=== PATIENT | male | born 1955 | race Caucasian/White ===

== ENCOUNTER 2016-11-15 10:26 | Emergency (ER) | payer OTHER ==
[2016-11-15 10:51] VITALS: BP 127/75
--- NOTE | 2016-11-15 11:22 | UC ---
UC General HPI - HPI Summary HPI Summary: cough ,fever, chest congestion, laryngitis for the past three days. - History of Current Complaint Chief Complaint: UCRespiratory Stated Complaint: HEADACHE,COUGH,CHEST CONGESTION Time Seen by Provider: 11/15/16 10:55 Hx Obtained From: Patient Onset/Duration: Sudden Onset, Lasting Days Timing: Constant Onset Severity: Moderate Current Severity: Moderate Pain Intensity: 6 - Allergy/Home Medications Allergies/Adverse Reactions: Allergies Allergy/AdvReac Type Severity Reaction Status Date / Time Levofloxacin [From Levaquin] Allergy Hives Verified 11/15/16 10:51 Home Medications: Home Medications amLODIPine TAB* [Norvasc TAB*] 5 mg PO DAILY 11/15/16 [History Confirmed ] PMH/Surg Hx/FS Hx/Imm Hx Previously Healthy: Yes Cardiovascular History Of: Reports: Hypertension - Surgical History Surgical History: Yes Surgery Procedure, Year, and Place: LEFT KNEE SURGERY 1991. [facility] 1983. T&A - Family History Known Family History: Positive: Cardiac Disease - Social History Alcohol Use: Rare Substance Use Type: None Smoking Status (MU): Never Smoked Tobacco - Immunization History Most Recent Tetanus Shot: UTD Review of Systems Constitutional: Fever, Chills, Fatigue Skin: Negative Eyes: Negative ENT: Sore Throat Respiratory: Shortness Of Breath, Cough Cardiovascular: Negative Gastrointestinal: Negative Genitourinary: Negative Motor: Negative Neurovascular: Negative Musculoskeletal: Negative Neurological: Headache Psychological: Negative All Other Systems Reviewed And Are Negative: Yes Physical Exam Triage Information Reviewed: Yes Appearance: Well-Nourished, Ill-Appearing, Pain Distress Vital Signs: Initial Vital Signs Temp 98.4 F 11/15/16 10:47 Pulse 75 11/15/16 10:47 Resp 14 11/15/16 10:47 BP 127/75 11/15/16 10:47 Pulse Ox 97 11/15/16 10:47 Vital Signs Reviewed: Yes Eye Exam: Normal Eyes: Positive: Conjunctiva Clear ENT Exam: Normal ENT: Positive: Normal ENT inspection, Hearing grossly normal, Pharyngeal erythema, TMs normal, Muffled/hoarse voice Dental Exam: Normal Neck exam: Normal Neck: Positive: Supple, Nontender, Enlarged Nodes @ Respiratory Exam: Normal Respiratory: Positive: Chest non-tender, No respiratory distress, No accessory muscle use, Wheezing, Inspiration Cardiovascular Exam: Normal Cardiovascular: Positive: No Murmur, Pulses Normal, Tachycardia Abdominal Exam: Normal Abdomen Description: Positive: Nontender, No Organomegaly, Soft Bowel Sounds: Positive: Present Musculoskeletal Exam: Normal Musculoskeletal: Positive: Strength Intact, ROM Intact, No Edema Neurological Exam: Normal Neurological: Positive: Alert, Muscle Tone Normal Psychological Exam: Normal Skin Exam: Normal Course/Dx - Course Course Of Treatment: hx obtained, exam performed, flu swab obtained and is negative, patient has been taking APAP at home. albuterol prescribed. - Differential Dx - Multi-Symptom Provider Diagnoses: URI. Bronchospasm. FEVER Discharge - Discharge Plan Condition: Stable Disposition: HOME Patient Education Materials: Upper Respiratory Infection (ED) Forms: *Work Release Referrals: Rosita Mcnamara PA [Primary Care Provider] - Additional Instructions: get plenty of rest, increase your fluid intake. Continue with tylenol and use the albuterol as needed.
== END 2016-11-15 11:46 | disposition home or self-care (01) ==
LOC: UCCORT 10:26
DX: J06.9 Acute upper respiratory infection, unspecified (principal); J98.01 Acute bronchospasm; R50.9 Fever, unspecified; I10 Essential (primary) hypertension; Z88.1 Allergy status to other antibiotic agents
CPT/HCPCS: 87502; 99212; G0463

== ENCOUNTER 2017-08-26 12:55 | Emergency (ER) | payer OTHER ==
[2017-08-26 14:11] VITALS: BP 137/84
--- NOTE | 2017-08-26 14:49 | UC ---
Complaint Male HPI - HPI Summary HPI Summary: cloudy urine for a week, hematuria x 1 day. feels some pain going up to the right flank - History of Current Complaint Chief Complaint: UCGU Stated Complaint: RIGHT LOWER BACK PAIN, BLOOD IN URINE Time Seen by Provider: 08/26/17 14:18 Hx Obtained From: Patient Onset/Duration: Sudden Onset, Lasting Days Timing: Lasting Days Severity Initially: Mild Severity Currently: Moderate Location: Flank Aggravating Factor(s): Nothing - Allergies/Home Medications Allergies/Adverse Reactions: Allergies Allergy/AdvReac Type Severity Reaction Status Date / Time Levofloxacin [From Levaquin] Allergy Hives Verified 08/26/17 14:06 Home Medications: Home Medications Aspirin [Aspirin 81 MG TAB] 81 mg PO DAILY 08/26/17 [History Confirmed 08/26/17] PMH/Surg Hx/FS Hx/Imm Hx Previously Healthy: Yes - Surgical History Surgical History: Yes Surgery Procedure, Year, and Place: LEFT KNEE SURGERY 1991. [facility]Y 1983. T&A - Family History Known Family History: Positive: Cardiac Disease - Social History Alcohol Use: Rare Substance Use Type: None Smoking Status (MU): Never Smoked Tobacco - Immunization History Most Recent Tetanus Shot: UTD Review of Systems Constitutional: Negative Skin: Negative Eyes: Negative ENT: Negative Respiratory: Negative Cardiovascular: Negative Gastrointestinal: Abdominal Pain - right side radiated to right flank Genitourinary: Hematuria Motor: Negative Neurovascular: Negative Musculoskeletal: Negative Neurological: Negative Psychological: Negative Is Patient Immunocompromised?: No All Other Systems Reviewed And Are Negative: Yes Physical Exam Triage Information Reviewed: Yes Appearance: Well-Appearing, Well-Nourished, Pain Distress Vital Signs: Initial Vital Signs Temp 98.3 F 08/26/17 14:08 Pulse 60 08/26/17 14:08 Resp 18 08/26/17 14:08 BP 137/84 08/26/17 14:08 Vital Signs Reviewed: Yes Eye Exam: Normal ENT Exam: Normal Dental Exam: Normal Neck exam: Normal Respiratory Exam: Normal Respiratory: Positive: Chest non-tender, Lungs clear, Normal breath sounds Cardiovascular Exam: Normal Cardiovascular: Positive: RRR, No Murmur, Pulses Normal Abdominal Exam: Normal Abdomen Description: Positive: Nontender, No Organomegaly, Soft, CVA Tenderness (R) - nrg, CVA Tenderness (L) - nrg Bowel Sounds: Positive: Present Musculoskeletal Exam: Normal Psychological Exam: Normal Skin Exam: Normal Complaint Male Course/Dx - Course Course Of Treatment: hx obtained, exam performed ,meds reviewed, UA pos for leuks blood and pro,. treated with keflex, allergie to levoquin and related, does not tolerated bactrim well. has a urology appointment on the 12th already scheduled - Differential Dx/Diagnosis Differential Diagnosis/HQI/PQRI: Urinary Tract Infection Provider Diagnoses: UTI, hematuria Discharge - Discharge Plan Condition: Stable Disposition: HOME Patient Education Materials: Urinary Tract Infection in Men (ED) Referrals: Rosita Mcnamara PA [Primary Care Provider] - Additional Instructions: 1. increase fluid intake and take the medication as prescribed. 2. FOllow up with your provider in the next 24-48 hours if symtpoms are not improving.
== END 2017-08-26 14:56 | disposition home or self-care (01) ==
LOC: UCCORT 12:55
DX: N39.0 Urinary tract infection, site not specified (principal); R31.9 Hematuria, unspecified; Z88.1 Allergy status to other antibiotic agents
CPT/HCPCS: 81003; 87086; 99212; G0463

== ENCOUNTER 2017-12-28 14:23 | Emergency (ER) | payer OTHER ==
[2017-12-28 14:51] VITALS: BP 125/77
--- NOTE | 2017-12-28 14:53 | UC ---
Respiratory Complaint HPI - HPI Summary HPI Summary: 62 yo M c/o cough and congestion since 12/18/17, worse since 12/19/17. Pt states it started as a sinus infection and has now progressed to his chest. No fever. No chest pain, no SOB. Pt states he gets this every year. States he started using the albuterol inhaler that was prescribed last year and that has been helping with the tightness in his throat. Has a lot of post nasal drip. The cough is productive at times. No hemoptysis. States the cough is keeping him up at night. States promethazine with codeine cough syrup has helped him in the past. Requests this. - History of Current Complaint Chief Complaint: UCGeneralIllness Stated Complaint: CHEST CONGESTION,COUGH Time Seen by Provider: 12/28/17 14:44 Hx Obtained From: Patient Onset/Duration: Gradual Onset, Lasting Weeks - 1.5 Timing: Constant Severity Initially: Moderate Severity Currently: Moderate Pain Intensity: 0 Character: Cough: Productive Aggravating Factors: Nothing Alleviating Factors: Bronchodilator Associated Signs And Symptoms: Positive: URI, Nasal Congestion, Hoarseness, Sinus Discomfort. Negative: Dyspnea, Fever, Pleuritic Chest Pain, Wheezing, Hemoptysis Related History: Similar Episode/Dx as: - bronchitis - Allergies/Home Medications Allergies/Adverse Reactions: Allergies Allergy/AdvReac Type Severity Reaction Status Date / Time levofloxacin Allergy Hives Verified 12/28/17 14:42 Home Medications: Home Medications Pravastatin Sodium 40 mg PO DAILY 12/28/17 [History Confirmed 12/28/17] Tamsulosin CAP* [Flomax CAP*] 0.4 mg PO DAILY 12/28/17 [History Confirmed ] PMH/Surg Hx/FS Hx/Imm Hx Previously Healthy: No Cardiovascular History: Hypertension - Surgical History Surgical History: Yes Surgery Procedure, Year, and Place: LEFT KNEE SURGERY 1991. [facility] 1983. T&A - Family History Known Family History: Positive: Cardiac Disease - Social History Occupation: Retired Lives: Alone Alcohol Use: Occasionally Substance Use Type: None Smoking Status (MU): Never Smoked Tobacco - Immunization History Most Recent Tetanus Shot: UTD Review of Systems Constitutional: Negative ENT: Sinus Congestion, Sinus Pain/Tenderness Respiratory: Cough Cardiovascular: Negative Motor: Negative Neurovascular: Negative Musculoskeletal: Negative Neurological: Negative Psychological: Negative Is Patient Immunocompromised?: No All Other Systems Reviewed And Are Negative: Yes Physical Exam Triage Information Reviewed: Yes Appearance: No Pain Distress, Well-Nourished, Ill-Appearing - mild Vital Signs: Initial Vital Signs Temp 99.3 F 12/28/17 14:45 Pulse 66 12/28/17 14:45 Resp 14 12/28/17 14:45 BP 125/77 12/28/17 14:45 Pulse Ox 99 12/28/17 14:45 Vital Signs Reviewed: Yes Eyes: Positive: Conjunctiva Clear ENT: Positive: Hearing grossly normal, Pharynx normal, Nasal congestion, TMs normal, Hoarse voice, Sinus tenderness, Uvula midline. Negative: Tonsillar swelling, Tonsillar exudate, Trismus, Muffled voice Neck: Positive: Supple, Nontender, No Lymphadenopathy Respiratory: Positive: Lungs clear, Normal breath sounds, No respiratory distress, No accessory muscle use Cardiovascular: Positive: RRR, No Murmur, Pulses Normal, Brisk Capillary Refill Musculoskeletal: Positive: Strength Intact, ROM Intact Neurological: Positive: Alert, Muscle Tone Normal Psychological Exam: Normal Skin Exam: Normal UC Diagnostic Evaluation - Laboratory O2 Sat by Pulse Oximetry: 99 Respiratory Course/Dx - Course Course Of Treatment: I stop checked, [id number]. Only diazepam 5mg from [facility] , no narcotics. Pt agrees to renewal of inhaler and wants to try promethazine with codeine cough syrup again. Meds reviewed. Elevated BP noted, pt on amlodipine is compliant. Will follow up with Dr. Castellanos if no improvement. - Differential Dx/Diagnosis Differential Diagnosis/HQI/PQRI: Bronchitis, Influenza, Laryngitis, Lower Resp Infection, Sinusitis Provider Diagnoses: Acute bronchitis. Sinusitis. HTN in poor control Discharge - Sign-Out/Discharge Documenting (check all that apply): Discharge - Discharge Plan Condition: Stable Disposition: HOME Prescriptions: Albuterol HFA INHALER* [Ventolin HFA Inhaler*] 2 puff INH Q4H PRN #1 mdi PRN Reason: Cough Promethazine HCl/Codeine [Prometh-Codein 6.25-10 mg/5 ml] 5 ml PO Q4H PRN #100 ml MDD 20ml PRN Reason: Cough Patient Education Materials: Acute Bronchitis (ED) Referrals: Farida Castellanos PA [Primary Care Provider] - 3 Days Additional Instructions: Return to Urgent Care if you have any new or worsening symptoms. - Billing Disposition and Condition Condition: STABLE Disposition: HOME
== END 2017-12-28 15:26 | disposition home or self-care (01) ==
LOC: UCCORT 14:23
DX: J20.9 Acute bronchitis, unspecified (principal); J32.9 Chronic sinusitis, unspecified; I10 Essential (primary) hypertension; Z88.1 Allergy status to other antibiotic agents
CPT/HCPCS: 99212; G0463